=== PATIENT | male | born 1960 | race Caucasian/White ===

== ENCOUNTER → 2017-12-17 10:17 | Outpatient (CLI) | payer BC, SELFPAY ==
[2017-12-17 11:42] LABS: AST(SGOT) 18 U/L (15-37); Alanine Aminotransfer ALT/SGPT 30 U/L (16-61); Alkaline Phosphatase 60 U/L (45-117); Bilirubin, Direct 0.08 mg/dL (0.00-0.30); Cholesterol 178 mg/dL (200); Globulin 3.5 g/dL (2.2-4.2); High Density Lipoprotein 33 mg/dL; Protein, Total 7.5 g/dL (6.4-8.2); Triglycerides 189 mg/dL; Very Low Density Lipoprotein 38 mg/dL (5-40)
== END ==
PROVIDERS: Internal Medicine Cardiovascular Disease; Visit Provider Surgery Vascular Surgery
DX: I65.23 Occlusion and stenosis of bilateral carotid arteries (principal); E78.00 Pure hypercholesterolemia, unspecified; Z72.0 Tobacco use; Z86.73 Personal history of transient ischemic attack (TIA), and cerebral infarction without residual deficits
CPT/HCPCS: 36415; 80061; 80076; 93880

== ENCOUNTER → 2018-12-16 07:52 | Outpatient (CLI) | payer BC, SELFPAY ==
[2018-10-14 15:20] VITALS: BMI 28.5
[2018-12-16 08:14] LABS: Absolute Lymphocyte Count 2.11 X10^3/uL (0.83-4.51); Absolute Neutrophil Count 4.1 X10^3/uL (2.0-7.7); Basophil# 0.04 X10^3/uL; Basophil% 0.6 % (0-1); Eosinophil# 0.28 X10^3/uL; Eosinophils% 3.9 % (0-5); Hematocrit 44.3 % (40-54); Hemoglobin 14.6 g/dL (13.0-16.5); Lymphocyte # 2.11 X10^3/ul (4.0); Lymphocyte % 29.2 % (19-41); Mean Corpuscular Hgb 29.5 pg (27.0-32.0); Mean Corpuscular Volume 89.5 fL (80-94); Mean Platelet Vol. 9.8 fl (6.2-12.0); Monocyte# 0.63 X10^3/uL; Monocyte% 8.7 % (0-10); NRBC Flagged by Analyzer 0 % (0-5); Neutrophil # 4.13 X10^3/uL (2.7-7.7); Neutrophil % 57.2 % (47-70); Platelet Count 293 K/mm3 (150-450); RBC Distribution Width CV 13.2 % (11.6-14.6); RBC Distribution Width SD 43.2 fl (35.1-43.9); Red Blood Count 4.95 M/mm3 (4.6-6.2); White Blood Count 7.2 K/mm3 (4.4-11.0)
[2018-12-16 08:57] LABS: AST(SGOT) 15 U/L (15-37); Alanine Aminotransfer ALT/SGPT 30 U/L (16-61); Albumin, Serum 3.8 g/dL (3.2-5.0); Alkaline Phosphatase 65 U/L (45-117); Anion Gap 7 (5-15); BUN 25 mg/dL (7-18); BUN/Creat Ratio 23.4 RATIO (10-20); Bilirubin, Direct 0.09 mg/dL (0.00-0.30); Calcium,Total 8.9 mg/dL (8.5-10.1); Chloride 109 mmol/L (98-107); Cholesterol 233 mg/dL (200); Creatinine, Serum 1.07 mg/dL (0.70-1.30); EST Glomerular Filtration Rate 75 mL/min (>60); Est Glom Filt Rate - Afr Amer 91 mL/min (>60); Globulin 3.6 g/dL (2.2-4.2); Glucose 107 mg/dL (74-106); High Density Lipoprotein 34 mg/dL; Potassium 4.3 mmol/L (3.5-5.1); Protein, Total 7.4 g/dL (6.4-8.2); Sodium Level 140 mmol/L (136-145); Thyroid Stim Hormone (TSH) 1.53 uIU/mL (0.358-3.74); Triglycerides 386 mg/dL; Very Low Density Lipoprotein 77 mg/dL (5-40)
[2018-12-16 09:10] LABS: Vitamin B12 911 pg/mL (211-911); Vitamin D,25 Hydroxy 36.6 ng/mL (29.95-100.01)
== END ==
PROVIDERS: Referring Provider Nurse Practitioner Family; Visit Provider Nurse Practitioner Family
DX: E78.5 Hyperlipidemia, unspecified (principal); R53.83 Other fatigue
CPT/HCPCS: 36415; 80048; 80061; 80076; 82306; 82607; 84439; 84443; 85025

== ENCOUNTER → 2019-03-09 07:31 | Outpatient (CLI) | payer BC, SELFPAY ==
[2018-10-14 15:20] VITALS: BMI 28.5
--- NOTE | 2019-03-09 07:37 | CDU_ITS ---
Reason For Study: Carotid artery stenosis Rt. Velocities/BP Lt. Velocities/BP Prox CCA 81.2/26.5 cm/sec. Prox CCA 98.6/24.9 cm/sec. Mid CCA 45.4/16.8 cm/sec. Mid CCA 65.4/20 cm/sec. Dist CCA 40.9/20.1 cm/sec. Dist CCA 70.3/23.7 cm/sec. Prox ICA 34.4/16.6 cm/sec. Prox ICA 52/20.1 cm/sec. Mid ICA 76.5/32.3 cm/sec. Mid ICA 141.2/64.5 cm/sec. Dist ICA 91.2/42.1 cm/sec. Dist ICA 104.7/48 cm/sec. Rt. ICA/CCA = 2.0. Lt. ICA/CCA = 2.0. Prox ECA 84.6/22.5 cm/sec. Prox ECA 75.2/12.6 cm/sec. Rt. Vert. 60.5/23.7 cm/sec. Lt. Vert. 33.4/9 cm/sec. Right Extracranial There is homogeneous, smooth atherosclerotic plaque noted in the right common carotid artery. There is heterogeneous, smooth atherosclerotic plaque noted in the right internal carotid artery. The right external carotid artery is not well visualized. Antegrade flow is noted in the right vertebral artery. Left Extracranial There is homogeneous, smooth atherosclerotic plaque noted in the left common carotid artery. There is heterogeneous, irregular atherosclerotic plaque noted in the left internal carotid artery. There is no significant atherosclerotic plaque noted in the left external carotid artery. Antegrade flow is noted in the left vertebral artery. Procedure Carotid Duplex 80893. Exam performed in department. Interpretation Summary Mild (<50%) stenosis right extracranial internal carotid. Moderate (50-69%) stenosis left extracranial internal carotid. Flow within the vertebral arteries is antegrade bilaterally. Ordering Physician: Arthur Merino Performed By: Melodie Henriquez RVT
== END ==
PROVIDERS: Referring Provider Surgery Vascular Surgery; Visit Provider Surgery Vascular Surgery
DX: I65.23 Occlusion and stenosis of bilateral carotid arteries (principal); E78.00 Pure hypercholesterolemia, unspecified; F17.200 Nicotine dependence, unspecified, uncomplicated; Z86.73 Personal history of transient ischemic attack (TIA), and cerebral infarction without residual deficits
CPT/HCPCS: 93880

== ENCOUNTER → 2019-06-26 09:15 | Outpatient (CLI) | payer BC, SELFPAY ==
[2019-04-27 15:12] VITALS: BMI 29.5
[2019-06-26 11:30] LABS: AST(SGOT) 17 U/L (15-37); Alanine Aminotransfer ALT/SGPT 37 U/L (16-61); Alkaline Phosphatase 56 U/L (45-117); Bilirubin, Direct 0.08 mg/dL (0.00-0.30); Cholesterol 237 mg/dL (200); Globulin 3.7 g/dL (2.2-4.2); High Density Lipoprotein 42 mg/dL; Protein, Total 7.7 g/dL (6.4-8.2); Triglycerides 162 mg/dL; Very Low Density Lipoprotein 32 mg/dL (5-40)
== END ==
PROVIDERS: Referring Provider Internal Medicine Cardiovascular Disease; Visit Provider Internal Medicine Cardiovascular Disease
DX: E78.00 Pure hypercholesterolemia, unspecified (principal); E78.5 Hyperlipidemia, unspecified; I65.29 Occlusion and stenosis of unspecified carotid artery
CPT/HCPCS: 36415; 80061; 80076

== ENCOUNTER → 2019-12-01 06:19 | Outpatient (CLI) | payer BC, SELFPAY ==
[2019-04-27 15:12] VITALS: BMI 29.5
[2019-12-01 07:23] LABS: AST(SGOT) 17 U/L (15-37); Alanine Aminotransfer ALT/SGPT 44 U/L (16-61); Albumin, Serum 3.9 g/dL (3.2-5.0); Alkaline Phosphatase 59 U/L (45-117); Bilirubin, Direct 0.08 mg/dL (0.00-0.30); Cholesterol 195 mg/dL (200); Globulin 3.6 g/dL (2.2-4.2); High Density Lipoprotein 37 mg/dL; Protein, Total 7.5 g/dL (6.4-8.2); Triglycerides 122 mg/dL; Very Low Density Lipoprotein 24 mg/dL (5-40)
== END ==
PROVIDERS: Referring Provider Internal Medicine Cardiovascular Disease; Visit Provider Internal Medicine Cardiovascular Disease
DX: E78.5 Hyperlipidemia, unspecified (principal); I65.29 Occlusion and stenosis of unspecified carotid artery
CPT/HCPCS: 36415; 80061; 80076

== ENCOUNTER → 2020-03-14 09:39 | Outpatient (CLI) | payer BC, SELFPAY ==
[2019-12-07 13:56] VITALS: BMI 27.8
--- NOTE | 2020-03-14 09:47 | CDU_ITS ---
Reason For Study: stenosis Rt. Velocities/BP Lt. Velocities/BP Prox CCA 89.9/22.0 cm/sec. Prox CCA 130.8/37.6 cm/sec. Mid CCA 48.2/18.6 cm/sec. Mid CCA 105.2/28.5 cm/sec. Dist CCA 49.3/19.7 cm/sec. Dist CCA 92.0/31.8 cm/sec. Prox ICA 77.9/27.3 cm/sec. Prox ICA 78.1/22.8 cm/sec. Mid ICA 77.9/28.4 cm/sec. Mid ICA 86.7/32.7 cm/sec. Dist ICA 59.2/27.3 cm/sec. Dist ICA 75.7/30.2 cm/sec. Rt. ICA/CCA = 77.9/49.3=1.6. Lt. ICA/CCA = 86.7/105.2=0.82. Prox ECA 82.3/16.4 cm/sec. Prox ECA 127.1/37.6 cm/sec. Rt. Vert. 62.5/22.9 cm/sec. Lt. Vert. 46.9/13.8 cm/sec. Right Extracranial There is heterogeneous, smooth atherosclerotic plaque noted in the right common carotid artery. There is homogeneous, smooth atherosclerotic plaque noted in the right internal carotid artery. There is homogeneous, smooth atherosclerotic plaque noted in the right external carotid artery. Antegrade flow is noted in the right vertebral artery. Left Extracranial There is homogeneous, smooth atherosclerotic plaque noted in the left common carotid artery. There is heterogeneous, irregular atherosclerotic plaque noted in the left internal carotid artery. There is intimal thickening but no significant atherosclerotic plaque noted in the left external carotid artery. Antegrade flow is noted in the left vertebral artery. Interpretation Summary Mild (<50%) stenosis right extracranial internal carotid. Mild (<50%) stenosis left extracranial internal carotid. Flow within the vertebral arteries is antegrade bilaterally. Ordering Physician: Anibal Modi Referring Physician: Prerna Read Performed By: Hannah Abbott RDCS, RVT
== END ==
PROVIDERS: Referring Provider Physician Assistant Medical; Visit Provider Physician Assistant Medical
DX: I65.29 Occlusion and stenosis of unspecified carotid artery (principal); E78.5 Hyperlipidemia, unspecified; F17.200 Nicotine dependence, unspecified, uncomplicated
CPT/HCPCS: 93880

== ENCOUNTER → 2020-11-25 11:03 | Outpatient (CLI) | payer BC, SELFPAY ==
[2020-06-06 12:56] VITALS: BMI 27.9
[2020-11-25 13:04] LABS: AST(SGOT) 21 U/L (15-37); Alanine Aminotransfer ALT/SGPT 51 U/L (16-61); Albumin, Serum 4.3 g/dL (3.2-5.0); Alkaline Phosphatase 57 U/L (45-117); Bilirubin, Direct 0.12 mg/dL (0.00-0.30); Cholesterol 224 mg/dL (200); Globulin 3.9 g/dL (2.2-4.2); High Density Lipoprotein 39 mg/dL; Protein, Total 8.2 g/dL (6.4-8.2); Triglycerides 127 mg/dL; Very Low Density Lipoprotein 25 mg/dL (5-40)
== END ==
PROVIDERS: Referring Provider Internal Medicine Cardiovascular Disease; Visit Provider Internal Medicine Cardiovascular Disease
DX: E78.5 Hyperlipidemia, unspecified (principal)
CPT/HCPCS: 36415; 80061; 80076

== ENCOUNTER → 2021-03-30 13:02 | Outpatient (CLI) | payer BC, SELFPAY ==
--- NOTE | 2021-03-30 13:09 | CDU_ITS ---
Reason For Study: carotid stenosis Rt. Velocities/BP Lt. Velocities/BP Prox CCA 74.7/21.3 cm/sec. Prox CCA 106.9/34.4 cm/sec. Mid CCA 59.1/23.9 cm/sec. Mid CCA 105.8/28.9 cm/sec. Dist CCA 43.4/20.0 cm/sec. Dist CCA 79.4/23.4 cm/sec. Prox ICA 33.3/13.5 cm/sec. Prox ICA 104.8/38.4 cm/sec. Mid ICA 75.9/29.6 cm/sec. Mid ICA 115.8/39.7 cm/sec. Dist ICA 71.1/32.4 cm/sec. Dist ICA 92.4/33.5 cm/sec. Rt. ICA/CCA = 1.3. Lt. ICA/CCA = 1.1. Prox ECA 117.7/33.0 cm/sec. Prox ECA 126.9/37.2 cm/sec. Rt. Vert. 67.4/26.7 cm/sec. Lt. Vert. 52.5/11.0 cm/sec. Right Extracranial There is homogeneous, smooth atherosclerotic plaque noted in the right common carotid artery. There is heterogeneous, irregular atherosclerotic plaque noted in the right internal carotid artery. There is homogeneous, smooth atherosclerotic plaque noted in the right external carotid artery. The right external carotid artery is not well visualized. Antegrade flow is noted in the right vertebral artery. Left Extracranial There is homogeneous, smooth atherosclerotic plaque noted in the left common carotid artery. There is heterogeneous, irregular atherosclerotic plaque noted in the left internal carotid artery. There is homogeneous, smooth atherosclerotic plaque noted in the left external carotid artery. Antegrade flow is noted in the left vertebral artery. Procedure Carotid Duplex 38928. This is a Carotid Duplex examination using B-mode, color flow and specral Doppler. The exam was diagnostic. Exam performed in department. VL/Carotid Duplex Ultrasound Interpretation Summary Mild (<50%) stenosis right extracranial internal carotid. Mild (<50%) stenosis left extracranial internal carotid. Flow within the vertebral arteries is antegrade bilaterally. Ordering Physician: Arthur Merino Performed By: Dimitri Domingo RVT
== END ==
PROVIDERS: Referring Provider Surgery Vascular Surgery; Visit Provider Surgery Vascular Surgery
DX: I65.23 Occlusion and stenosis of bilateral carotid arteries (principal); I63.9 Cerebral infarction, unspecified; F17.200 Nicotine dependence, unspecified, uncomplicated
CPT/HCPCS: 93880

== ENCOUNTER → 2022-01-02 | Outpatient (CLI) | payer BC, SELFPAY ==
[2022-01-02 08:15] LABS: AST(SGOT) 15 U/L (15-37); Alanine Aminotransfer ALT/SGPT 22 U/L (16-61); Albumin, Serum 3.5 g/dL (3.2-5.0); Alkaline Phosphatase 56 U/L (45-117); Cholesterol 136 mg/dL (200); Globulin 3.4 g/dL (2.2-4.2); High Density Lipoprotein 46 mg/dL; Protein, Total 6.9 g/dL (6.4-8.2); Triglycerides 234 mg/dL; Very Low Density Lipoprotein 47 mg/dL (5-40)
== END | disposition home or self-care (01) ==
PROVIDERS: Referring Provider Internal Medicine Cardiovascular Disease; Visit Provider Internal Medicine Cardiovascular Disease
DX: I65.23 Occlusion and stenosis of bilateral carotid arteries (principal); E78.5 Hyperlipidemia, unspecified
CPT/HCPCS: 36415; 80061; 80076

== ENCOUNTER 2022-10-23 07:50 | Outpatient (CLI) | payer BC, SELFPAY ==
[2022-10-23 08:47] LABS: Absolute Lymphocyte Count 2.06 X10^3/uL (0.83-4.51); Absolute Neutrophil Count 3.5 X10^3/uL (2.0-7.7); Basophil# 0.04 X10^3/uL; Basophil% 0.6 % (0-1); Eosinophil# 0.35 X10^3/uL; Eosinophils% 5.3 % (0-5); Hemoglobin 14.5 g/dL (13.0-16.5); Lymphocyte # 2.06 X10^3/ul (0.83-4.51); Lymphocyte % 31.3 % (19-41); Mean Corp Hgb Conc 33.7 g/dL (32-36); Mean Corpuscular Hgb 30.5 pg (27.0-32.0); Mean Corpuscular Volume 90.5 fL (80-94); Mean Platelet Vol. 10.1 fl (6.2-12.0); Monocyte# 0.61 X10^3/uL; Monocyte% 9.3 % (0-10); NRBC Flagged by Analyzer 0 % (0-5); Neutrophil # 3.51 X10^3/uL (2.7-7.7); Neutrophil % 53.2 % (47-70); Platelet Count 284 K/mm3 (150-450); RBC Distribution Width CV 13.1 % (11.6-14.6); RBC Distribution Width SD 43.3 fl (35.1-43.9); Red Blood Count 4.75 M/mm3 (4.6-6.2); White Blood Count 6.6 K/mm3 (4.4-11.0)
[2022-10-23 09:29] LABS: ALB/GLOB Ratio 0.9 RATIO (0.9-2.4); AST(SGOT) 12 U/L (15-37); Alanine Aminotransfer ALT/SGPT 27 U/L (16-61); Albumin, Serum 3.5 g/dL (3.2-5.0); Alkaline Phosphatase 64 U/L (45-117); Anion Gap 3 (5-15); BUN 17 mg/dL (7-18); BUN/Creat Ratio 15.7 RATIO (10-20); CPK Total, Creatine Kinase 98 U/L (39-308); Calcium,Total 8.8 mg/dL (8.5-10.1); Chloride 108 mmol/L (98-107); Cholesterol 129 mg/dL (200); Creatinine, Serum 1.08 mg/dL (0.70-1.30); EST Glomerular Filtration Rate 73 mL/min (>60); Est Glom Filt Rate - Afr Amer 89 mL/min (>60); Globulin 3.7 g/dL (2.2-4.2); Glucose 110 mg/dL (74-106); High Density Lipoprotein 40 mg/dL; PSA,Total - Annual Screen 1.91 ng/mL (0.00-4.00); Potassium 4.4 mmol/L (3.5-5.1); Protein, Total 7.2 g/dL (6.4-8.2); Sodium Level 139 mmol/L (136-145); Thyroid Stim Hormone (TSH) 1.17 uIU/mL (0.358-3.74); Triglycerides 192 mg/dL; Very Low Density Lipoprotein 38 mg/dL (5-40)
== END 2022-10-23 23:59 | disposition home or self-care (01) ==
DX: Z00.00 Encounter for general adult medical examination without abnormal findings (principal)
CPT/HCPCS: 36415; 80053; 80061; 82550; 84153; 84443; 85025; G0103

== ENCOUNTER → 2023-04-17 | Outpatient (CLI) | payer BC, SELFPAY ==
--- NOTE | 2023-04-17 12:52 | CDU_ITS ---
Reason For Study: Carotid Stenosis / HX Rt ICA CEA Rt. Velocities/BP Lt. Velocities/BP Prox CCA 62.8/18.7 cm/sec. Prox CCA 132.1/44.4 cm/sec. Mid CCA 43.6/17.3 cm/sec. Mid CCA 115.6/27.9 cm/sec. Dist CCA 48.6/16.6 cm/sec. Dist CCA 92.7/33.3 cm/sec. Prox ICA 107.8/40.7 cm/sec. Prox ICA 356.4/141.0 cm/sec. Mid ICA 77.3/31.6 cm/sec. Mid ICA 126.3/23.6 cm/sec. Dist ICA 112.0/42.6 cm/sec. Dist ICA 39.2/14.4 cm/sec. Rt. ICA/CCA = 2.6. Lt. ICA/CCA = 3.1. Prox ECA 74.3/16.1 cm/sec. Prox ECA 126.6/33.4 cm/sec. Rt. Vert. 75.3/28.2 cm/sec. Lt. Vert. 51.2/12.0 cm/sec. Right Extracranial There is homogeneous, smooth atherosclerotic plaque noted in the right common carotid artery. There is homogeneous, smooth atherosclerotic plaque noted in the right internal carotid artery. HX CEA. There is heterogeneous, irregular atherosclerotic plaque noted in the right external carotid artery. Antegrade flow is noted in the right vertebral artery. Left Extracranial There is homogeneous, smooth atherosclerotic plaque noted in the left common carotid artery. There is heterogeneous, smooth atherosclerotic plaque noted in the left internal carotid artery. There is homogeneous, smooth atherosclerotic plaque noted in the left external carotid artery. Antegrade flow is noted in the left vertebral artery. Procedure Carotid Duplex [id number]. This is a Carotid Duplex examination using B-mode, color flow and specral Doppler. The exam was diagnostic. Exam performed in department. Preliminary results delivered to Dr. Meyer and Thao at Dr. Almodovar office. VL/Carotid Duplex Ultrasound Interpretation Summary Mild (<50%) stenosis right extracranial internal carotid. Severe (>70%) stenosi s left extracranial internal carotid. Flow within the vertebral arteries is antegrade bilaterally. Ordering Physician: Isela Meyer Referring Physician: MD Arthur Merino Performed By: Jonathan Medina RVT
== END | disposition home or self-care (01) ==
LOC: CVS 12:45
PROVIDERS: Referring Provider Internal Medicine Cardiovascular Disease; Visit Provider Internal Medicine Cardiovascular Disease
DX: I65.23 Occlusion and stenosis of bilateral carotid arteries (principal); I77.9 Disorder of arteries and arterioles, unspecified; R42 Dizziness and giddiness
CPT/HCPCS: 93880

== ENCOUNTER → 2024-04-10 | Outpatient (CLI) | payer BC, SELFPAY ==
[2024-04-10 09:30] LABS: Cholesterol 164 mg/dL (200); High Density Lipoprotein 44 mg/dL; Triglycerides 275 mg/dL; Very Low Density Lipoprotein 55 mg/dL (5-40)
== END | disposition home or self-care (01) ==
LOC: LAB 06:35
PROVIDERS: PCP Internal Medicine; Referring Provider Internal Medicine Cardiovascular Disease; Visit Provider Internal Medicine Cardiovascular Disease
DX: E78.5 Hyperlipidemia, unspecified (principal)
CPT/HCPCS: 36415; 80061

== ENCOUNTER → 2024-04-13 | Outpatient (CLI) | payer BC, SELFPAY ==
--- NOTE | 2024-04-13 08:44 | AAVD_ITS ---
Reason For Study: Evaluate AAA Aorta Measurements Aorta Doppler Measurements Proximal aorta measures1.90x2.03cm. in cross- Peak systolic flow velocities within the proximal sectional axis. aorta measure 104.9 cm/sec. Proximal aorta measures2.08cm. in longitudinal Peak systolic flow velocities within the mid aorta axis. measure 56.0 cm/sec. Mid aorta measures1.84x1.82cm. in cross-sectional Peak systolic flow velocities within the distal axis. aorta measure 66.9 cm/sec. Mid aorta measures1.82cm. in longitudinal axis. Distal aorta measures1.71x1.80cm. in cross- sectional axis. Distal aorta measures1.82cm. in longitudinal axis. Left Iliac Artery Left iliac artery measures 1.01 cm. in the longitudinal axis. Left iliac artery measures 1.01x1.08 cm. in the cross-sectional axis. Peak systolic velocity in the left iliac artery measures 56.0 cm/sec. Right Iliac Artery Right iliac artery measures 1.04 cm. in the longitudinal axis. Right iliac artery measures 1.01x1.03 cm. in the cross-sectional axis. Peak systolic velocity in the right iliac artery measures 81.4 cm/sec. Procedure Aorta IVC Iliac vasculature or bypass grafts [id number]. Exam performed in department. VL/Abd Aortic/IVC Duplex scan Interpretation Summary Aorta patent, normal caliber Bilateral iliac arteries patent, normal caliber. Ordering Physician: Isela Meyer Referring Physician: Isela Meyer MD Performed By: Melodie Henriquez RVT and Student
--- NOTE | 2024-04-13 08:44 | ECHOD_ITS ---
Reason For Study: HTN Procedure This was a 2D Doppler, Color Flow transthoracic echocardiogram. Exam performed in department. Left Ventricle Normal LV size. Mild concentric left ventricular hypertrophy. The left ventricular ejection fraction is 55 %. Stage 1 diastolic dysfunction. Right Ventricle Normal right ventricle. Atria The left and right atria are normal. Mitral Valve Trivial mitral valve insufficiency. Tricuspid Valve Normal tricuspid valve. Aortic Valve Trisinus/trileaflet aortic valve. Pulmonic Valve The pulmonic valve is not well visualized. Great Vessels Normal sized aortic root. Pericardium/Pleural No pericardial effusion. MMode/2D Measurements & Calculations LVIDd: 4.7 cm IVSd: 1.3 cm LVOT diam: 2.0 cm LVIDs: 2.8 cm LVPWd: 1.1 cm LVOT area: 3.2 cm2 RVDd: 4.0 cm FS: 40.0 % Ao root diam: 3.4 cm LAV(MOD-bp): 42.9 ml LVAd ap4: 26.9 cm2 LAV(MOD-bp) Indexed: 19.5 ml/m2 LVLd ap4: 9.0 cm LAV(MOD-sp2): 41.3 ml EDV(MOD-sp4): 68.0 ml LAV(MOD-sp4): 41.3 ml EDV(sp4-el): 68.5 ml LVAs ap4: 16.5 cm2 LVLs ap4: 8.0 cm ESV(MOD-sp4): 30.6 ml ESV(sp4-el): 29.0 ml EF(MOD-sp4): 55.0 % EF(sp4-el): 57.7 % LVAd ap2: 25.1 cm2 SV(MOD-sp4): 37.4 ml SV(MOD-sp2): 39.5 ml LVLd ap2: 8.7 cm SI(MOD-sp4): 17.0 ml/m2 SI(MOD-sp2): 18.0 ml/m2 EDV(MOD-sp2): 65.5 ml EDV(sp2-el): 61.5 ml LVAs ap2: 14.5 cm2 LVLs ap2: 7.5 cm ESV(MOD-sp2): 26.0 ml ESV(sp2-el): 23.7 ml EF(MOD-sp2): 60.4 % SV(sp4-el): 39.5 ml LA dimension(2D): 3.3 cm LA A4 area: 16.5 cm2 RA A4 area: 17.2 cm2 Time Measurements MV dec time: 0.20 sec Doppler Measurements & Calculations MV E max alvino: 57.4 cm/sec Lat Peak E' Alvino: 11.6 cm/sec Med Peak E' Alvino: 7.1 cm/sec MV A max alvino: 60.3 cm/sec E/E' lat: 4.9 E/E' med: 8.1 MV E/A: 0.95 MV V2 max: 63.6 cm/sec Ao V2 max: 104.6 cm/sec MV max P.6 mmHg MV dec slope: 291.0 cm/sec2 Ao max P.4 mmHg MV V2 mean: 38.5 cm/sec Ao V2 mean: 68.9 cm/sec MV mean P.67 mmHg Ao mean P.2 mmHg MV V2 VTI: 24.0 cm Ao V2 VTI: 21.5 cm AV (velocity ratio): 1.0 MVA(VTI): 2.9 cm2 ANDREA(I,D): 3.2 cm2 ANDREA(V,D): 3.1 cm2 LV V1 max: 100.0 cm/sec SV(LVOT): 69.2 ml PA V2 max: 81.8 cm/sec LV V1 max P.0 mmHg PA V2 mean: 57.6 cm/sec LV V1 mean P.9 mmHg LV V1 mean: 64.0 cm/sec LV V1 VTI: 21.6 cm ECHO/Echo Complete Interpretation Summary Mild concentric left ventricular hypertrophy. The left ventricular ejection fraction is 55 %. Stage 1 diastolic dysfunction. Ordering Physician: Isela Meyer Referring Physician: Isela Meyer Performed By: Lisandra Courtney RCS
== END | disposition home or self-care (01) ==
LOC: CVS 08:42
PROVIDERS: PCP Internal Medicine; Referring Provider Internal Medicine Cardiovascular Disease; Visit Provider Internal Medicine Cardiovascular Disease
DX: I51.89 Other ill-defined heart diseases (principal); I10 Essential (primary) hypertension; I77.9 Disorder of arteries and arterioles, unspecified; E66.9 Obesity, unspecified; F17.210 Nicotine dependence, cigarettes, uncomplicated
CPT/HCPCS: 93306; 93978